=== PATIENT | male | born 1995 | race Caucasian/White ===

== ENCOUNTER 2019-10-07 15:38 | Emergency (ER) | payer SELFPAY ==
[~2019-10-07] VITALS: Ht 175.3 cm; Wt 78.0 kg
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
[2019-10-07] MEDS ORDERED: IBUPROFEN 600 MG TABLET PO ONE ×2 (16:00→16:02)
[2019-10-07] MEDS ORDERED: HYDROCODONE/APAP 5/325MG 1 EACH TABLET PO ONE (16:00)
[2019-10-07] MEDS ORDERED: HYDROCODONE/APAP 5/325MG 1 EACH TABLET ONE (16:03)
--- NOTE | 2019-10-07 16:05 | NUR ---
POS GIVEN PER MD ORDER VSS TALKING ON THE PHONE MEDS GIVEN PER MD ORDER
--- NOTE | 2019-10-07 18:10 | NUR ---
CALLED [facility] FOR A DR TO AWAITING THE CALL BACK
--- NOTE | 2019-10-07 18:15 | NUR ---
PT STATE DFEELING BETTER RT FOOT SPLINTED DEMO CRUTCH USE PT. VERBALIZED UNDERSTANDING OF AFTERCARE INSTRUCTIONS.Crutches dispensed. Pt instructed on proper use of crutches. Patient able to demonstrate correct use of crutches.
[2019-10-07 18:18] VITALS: BP 129/78
== END 2019-10-07 18:34 | disposition home or self-care (01) ==
LOC: ER 15:41
DX: S92.421A Displaced fracture of distal phalanx of right great toe, initial encounter for closed fracture (principal); S80.212A Abrasion, left knee, initial encounter; V09.9XXA Pedestrian injured in unspecified transport accident, initial encounter; Y93.89 Activity, other specified; Y92.89 Other specified places as the place of occurrence of the external cause; Y99.8 Other external cause status
CPT/HCPCS: 73630-TC; 73700-TC